=== PATIENT | male | born 1960 | race Hispanic/Latino ===

== ENCOUNTER 2021-11-28 07:29 | Day surgery (SDC) | payer BC ==
[2021-11-23 14:14] LABS: Absolute Lymphocytes (CBC) 1.2 K/uL (0.7-4.9); Hematocrit 42.5 % (39.6-49.0); Lymphocytes % 18.2 % (15.3-44.8); MPV 8.2 fL (7.6-11.3); RBC Red Blood Cell Count 4.97 M/uL (4.33-5.43)
[2021-11-23 14:15] LABS: Protime INR 1.04
[2021-11-23 14:26] LABS: Potassium 4.5 mmol/L (3.5-5.1)
[2021-11-23 14:26] LABS: SARS-CoV-2 Antigen Rapid Res Negative (Negative)
--- NOTE | 2021-11-25 17:33 | EKG ---
Test Date: 2021-11-23 Test Time: 13:46:57 Beef Splitter: HILARY MEASUREMENT RESULTS: Intervals: Rate: 80 OK: 152 QRSD: 82 QT: 372 QTc: 429 Kilmichael: P: 39 OK: 152 QRS: 21 T: 33 INTERPRETIVE STATEMENTS: Sinus rhythm with premature supraventricular complexes Otherwise normal ECG Compared to ECG 09/18/2012 03:56:03 Atrial premature complex(es) now present Sinus bradycardia no longer present Left ventricular hypertrophy no longer present Electronically Signed On 11-25-21 17:29:52 CDT by Don Taveras
[2021-11-28] MEDS ORDERED: Ringers Lactate 1,000 ML IV ONE (07:49)
[2021-11-28] MEDS ORDERED: CEFAZOLIN 2 GM IN 0.9% NACL 2 GM/100 ML BAG ONE (07:49)
[2021-11-28] MEDS ORDERED: ACETAMINOPHEN 500 MG TAB ONE (08:09)
[2021-11-28] MEDS ORDERED: MIDAZOLAM HCL 2 MG/2 ML INJ ONE (10:13)
[2021-11-28] MEDS ORDERED: propofoL 200 MG/20 ML VIAL IV ONE (10:17)
[2021-11-28] MEDS ORDERED: FENTANYL CITR 100 MCG/2 ML ONE (10:17)
[2021-11-28] MEDS ORDERED: LIDOCAINE 1% MPF 5 ML VIAL ONE (10:17)
[2021-11-28] MEDS ORDERED: CODEINE 30MG/APAP 300MG TAB PO PRN (10:25)
[2021-11-28] MEDS ORDERED: KETOROLAC 30 MG/ML INJ ONE (10:38)
[2021-11-28] MEDS ORDERED: dexAMETHasone 10 MG/ML VIAL ONE (10:38)
[2021-11-28] MEDS ORDERED: ONDANSETRON 4 MG/2 ML VIAL ONE ×2 (10:41→12:01)
[2021-11-28] MEDS ORDERED: GLYCOPYRROLATE 0.2 MG/ML SYR ONE (10:52)
[2021-11-28] MEDS ORDERED: CODEINE 30MG/APAP 300MG TAB ONE (13:00)
[2021-11-28 13:17] VITALS: BP 134/87; TEMP 96.4; O2SAT 100
--- NOTE | 2021-11-29 06:47 | OP ---
Surgeon: MICHELLE AMBRIZ Preoperative Diagnosis: BPH with lower urinary tract obstruction and symptoms. Postoperative Diagnoses: 1.BPH with lower urinary tract obstruction and symptoms. 2.Meatal stenosis. Principal Procedure: Prostatic urethral lift/UroLift with 7 devices used, 6 implants placed because of 1 pull-through. Meatal dilation using sounds. Indication For Procedure: Mr. Valdez is a 61-year-old gentleman who has been on medical therapy for BPH with use of Flomax and desired to cease the requirement for medical therapy because he still had significant symptoms despite. After evaluation revealed the presence of an approximately 55 g gland with significant lateral lobar hypertrophy, he was counseled on potential options for surgical manag ement and selected the UroLift/prostatic urethral lift procedure. He presents today for definitive m anagement. Procedure In Detail: The patient was consented in the preoperative holding area before being transfe rred to the operative suite where general anesthesia was induced. He was given Ancef 2 g IV antimicr obial prophylaxis and Pneumoboots were provided for DVT prophylaxis. He was placed in the lithotomy position, padded and secured to the table appropriately. His genitalia were prepped using Hibiclens and he was draped in standard fashion. The case was begun, attempting to insert a 20-Kittitian cystosco pe bridge, but there was evidence of meatal stenosis. As a result, I employed urethral sounds to dil ate the meatus and fossa navicularis to 24-Kittitian. After dilating his meatus and fossa navicularis, I was then able to insert the 20-Kittitian cystoscope bridge via his urethra into his bladder with ease. The prostatic urethra was surveyed along the way. There was significant lateral lobar hypertrophy along with an elevated median bar without significant intravesical projection. As a result, the cyst oscope bridge was replaced with the urolith delivery device, and the first treatment site selected wa s the left side anterolaterally near the bladder neck. Approximately 2 cm distal to the bladder neck , the first delivery device was targeted. The tip of the delivery device was angled laterally approx imately 20 degrees to compress the lateral lobe. The trigger was pulled, thereby deploying a needle containing the implant through the prostate. An additional compression was performed delivering the capsular delivery tab before additional lateral lobar compression was then achieved using the UroLift 2 delivery device. The needle was then retracted along one end of the implant to be delivered to th e capsular surface of the prostate and the implant was tensioned to ensure capsular seeding. The dev ice was then angled back towards the midline and advanced about 1 to 2 mm until cystoscopic verificat ion of the monofilament was centered in the delivery bay. The urethral end piece was then affixed to the monofilament, thereby tailoring the size of the implant and excess filament was severed. The de livery device was then readvanced into the bladder. I then switched to a new delivery device and per formed a similar technique in the right anterolateral lobe approximately 2 cm distal to the bladder n humphrey on the right. An additional implant was placed at verumontanum on the left and fourth implant at the verumontanum on the right. I then performed cystoscopic verification of the work that had been performed, and there was still anterior overhang that when associated with the median bar did appear to have a degree of residual obstruction at the bladder neck. As a result, utilizing a technique of midline anterolateral sweeping of the tissue, an additional implant was placed in that position appro ximately 2 cm distal to the bladder neck on the right. This did seem to nicely lateralize and open t he bladder neck, but an additional implant was placed on the right side in order to completely open t he bladder neck. Prior to placing the sixth implant, 1 device was utilized, but the capsular tab did pull through. As a result, a seventh device was required to achieve the 6 implants placed. In the end, I reinserted the cystoscopic bridge and decompressed his bladder before performing evaluation of the anterior channel, which was nicely open and continuous from the verumontanum through to the blad fer neck. There was a mild degree of lateral lobar hypertrophy in the region of the apex of the pros mcmahan just proximal to the implants placed at the level of the verumontanum, but this was a minimal de gree of lateral lobar ingression/hypertrophy; so, additional implants were not placed in those locati ons. As a result, I left his bladder full and then placed an 18-Kittitian coude tip Daniels catheter with ease into his bladder. 15 cc of sterile water was placed in the balloon, and the catheter was allow ed to drain revealing only light pink urine. The catheter was connected to a StatLock into a leg bag , and the patient was taken out of the lithotomy position. He was then awakened from general anesthe annmarie, transferred to a stretcher, and then transferred to the recovery room in good condition. Complications: None. Discharge Disposition: He will be discharged with a prescription for Bactrim double strength tablets once daily for the next 3 days as well as Tylenol with Codeine for pain management. He will be inst ructed to remove the catheter tomorrow morning at 7 a.m. as well as he was given instructions to come to the office if he is unable to void by 1 p.m. Subsequent followup should be established in approx imately 1 month interval assessment and to determine if he needs to continue medical therapy or if an y additional therapeutics is required. MAIK/ALYSSA Voice ID: [id number] Report ID: [id number]
== END 2021-11-28 13:10 | disposition home or self-care (01) ==
LOC: OR 07:29
PROVIDERS: ATTEND Urology
PROC: 3E1K78Z Irrigation of Genitourinary Tract using Irrigating Substance, Via Natural or Artificial Opening (ICD-10-PCS; 2021-11-28)
PROC: 0T7D8DZ Dilation of Urethra with Intraluminal Device, Via Natural or Artificial Opening Endoscopic (ICD-10-PCS; principal; 2021-11-28 09:30)
DX: N40.1 Benign prostatic hyperplasia with lower urinary tract symptoms (principal); Z20.822 Contact with and (suspected) exposure to COVID-19
CPT/HCPCS: 52441; 52442 ×6; 93005; 87088; 85025; 87086; 80048; 36415; 85610; 87811; 51700; J2704; J2250; J3010; J1100; J0690; J7120; J2405 ×2

== ENCOUNTER 2021-11-28 19:53 | Emergency (ER) | payer BC ==
--- OUTSIDE RECORDS SUMMARY | 2021-11-28 19:56 | XMS REPORT | Continuity of Care Document ---
:1960 Author Organization [facility] t Address [address] [place] [address] Care Team Providers Name Role Phone Bernardo Mock MD Primary Care Physician BERNARDO MOCK Attending Clinician Unavailable Bernardo Mock MD Attending Clinician ALEN Attending Clinician Unavailable LAB90 Attending Clinician Unavailable Alen SHRIMP PICKER-C Attending Clinician MYRON Attending Clinician Unavailable Payers Payer Name Policy Type Policy Number Effective Date Expiration Date S levi [facility] 2 [id number] 2021 00:00:00 [employer] 2 [id number] 2020 00:00:00 Problems Condition Condition Condition Status Onset Resolution Last Treating Co mments Source Name Details Category Date Date Treatment Clinician Date Prediabete Prediabete Disease Active Isa dhillon s 11-01 Seybold 00:00: 00 Essential Essential Disease Active Chris sey hypertensi hypertensi 09-09 ybold on on 00:00: 00 Hypothyroi Hypothyroi Disease Active Isa larkin d d 09-09 Seybold 00:00: 00 Erectile Erectile Disease Active Kelse y dysfunctio dysfunctio 09-09 ybold n n 00:00: 00 Benign Benign Disease Active Devi prostatic prostatic 4-09 Seyb old hyperplasi hyperplasi 00:00: a with a with 00 lower lower urinary urinary tract tract symptoms symptoms Allergies, Adverse Reactions, Alerts This patient has no known allergies or adverse reactions. Social History Social Habit Start Date Stop Date Quantity Comments Source Tobacco use and 2020-09-09 2020-09-09 Smokeless tobacco Abhishek Chew exposure 00:00:00 00:00:00 non-user Sex Ass[birth year] M Devi bravo 00:00:00 00:00:00 Smoking Status Start Date Stop Date Source Never smoked tobacco Devi Coughlinyb old Medications Ordered Filled Start Stop Current Ordering Indication Dosage Frequency Signature Comments Components Source Medication Medication Date Date Medication? Clinician (SIG) Name Name Losartan Yes [id number] 50mg Take 1 Chris sey Potassium 6-01 tablet (50 Seyb old 50 MG oral 00:00: mg total) Tablet 00 by mouth daily Rosuvastati Yes [id number] 10mg Take 1 Devi n Calcium 6-01 tablet (10 Seyb old 10 MG oral 00:00: mg total) Tablet 00 by mouth daily Tadalafil 5 Yes [id number] 5mg Take 1 Devi MG oral 6-01 tablet (5 Seybold Tablet 00:00: mg total) 00 by mouth daily Tamsulosin Yes [id number] .8mg Take 2 Devi HCl 0.4 MG - 9102 capsules Seybo ld oral 00:00: (0.8 mg Capsule 00 total) by mouth daily Thyroid (HULL SORTER Yes [id number] 1{tbl} Take 1 Devi Thyroid) - tablet by Seybol d 120 MG oral 00:00: mouth Tablet 00 daily Trazodone Yes [id number] 50mg QD Take 1 K elsey HCl 50 MG 6-01 tablet (50 Seyb old oral Tablet 00:00: mg total) 00 by mouth nightly as needed for sleep Rosuvastati 2021- No [id number] 10mg Take 1 Devi n Calcium 2-24 06-01 tablet (10 Sey bold 10 MG oral 00:00: 00:00 mg total) Tablet 00 :00 by mouth daily Tamsulosin 2021- No [id number] .8mg Take 2 Devi HCl 0.4 MG 07-27 9102 capsules Seyb old oral 00:00: 00:00 (0.8 mg Capsule 00 :00 total) by mouth daily Multiple Yes [id number] Take by K elsey Vitamin 2-02 mouth Seybold (Multi 10:29: Vitamin) 42 oral Tablet Multiple Yes [id number] Take by K elsey Vitamin 2-02 mouth Seybold (Multi 10:29: Vitamin) 42 oral Tablet Thyroid (HULL SORTER Yes 1{tbl} Take 1 Ke lsey Thyroid) 06-26 tablet by Seybol d 120 MG oral 00:00: mouth Tablet 00 daily Thyroid (HULL SORTER 2021- No 1{tbl} Take 1 K elsey Thyroid) 06-26 tablet by Seybo ld 120 MG oral 00:00: 00:00 mouth Tablet 00 :00 daily Multiple 2020-06 Yes [id number] Take by K elsey Vitamin - mouth Seybold (Multi 09:51: Vitamin) 11 oral Tablet Trazodone 2020-06 Yes [id number] 50mg QD Take 1 K elsey HCl 50 MG -29 tablet (50 Seyb old oral Tablet 00:00: mg total) 00 by mouth nightly as needed for sleep Tamsulosin 2020-06 Yes [id number] .8mg Take 2 Devi HCl 0.4 MG 07-01 9102 capsules Seybo ld oral 00:00: (0.8 mg Capsule 00 total) by mouth daily Tadalafil 5 2020-06 Yes [id number] 5mg Take 1 Devi MG oral 1-29 tablet (5 Seybold Tablet 00:00: mg total) 00 by mouth daily Losartan 2020-06 Yes [id number] 50mg Take 1 Chris sey Potassium 1-29 tablet (50 Seyb old 50 MG oral 00:00: mg total) Tablet 00 by mouth daily Rosuvastati 2020-06 Yes [id number] 10mg Take 1 Devi n Calcium 1-29 tablet (10 Seyb old 10 MG oral 00:00: mg total) Tablet 00 by mouth daily Thyroid 2020-06 Yes [id number] 1{tbl} Take 1 Ke lsey (Axtell 1-29 tablet by Seybold Thyroid) 00:00: mouth 120 MG oral 00 daily Tablet Trazodone 2020-06 Yes [id number] 50mg QD Take 1 K elsey HCl 50 MG 07-01 tablet (50 Seyb old oral Tablet 00:00: mg total) 00 by mouth nightly as needed for sleep Tamsulosin 2020-06 Yes [id number] .8mg Take 2 Devi HCl 0.4 MG 07-01 9102 capsules Seybo ld oral 00:00: (0.8 mg Capsule 00 total) by mouth daily Tadalafil 5 2020-06 Yes [id number] 5mg Take 1 Devi MG oral 07-01 tablet (5 Seybold Tablet 00:00: mg total) 00 by mouth daily Losartan 2020-06 Yes [id number] 50mg Take 1 Chris sey Potassium 07-01 tablet (50 Seyb old 50 MG oral 00:00: mg total) Tablet 00 by mouth daily Rosuvastati 2020-06 Yes [id number] 10mg Take 1 Devi n Calcium 07-01 tablet (10 Seyb old 10 MG oral 00:00: mg total) Tablet 00 by mouth daily Losartan 2020-06- No [id number] 50mg Take 1 Ke lsey Potassium 07-01 tablet (50 Sey bold 50 MG oral 00:00: 00:00 mg total) Tablet 00 :00 by mouth daily Trazodone 2020-06- No [id number] 50mg QD Take 1 Devi HCl 50 MG 07-01 tablet (50 Sey bold oral Tablet 00:00: 00:00 mg total) 00 :00 by mouth nightly as needed for sleep Tadalafil 5 2020-06- No [id number] 5mg Take 1 Devi MG oral 07-01 tablet (5 Seybol d Tablet 00:00: 00:00 mg total) 00 :00 by mouth daily Multiple 2020-06 Yes [id number] Take by K elsey Vitamin - mouth Seybold (Multi 09:01: Vitamin) 28 oral Tablet Losartan 2020-06 Yes [id number] 50mg Take 1 Chris sey Potassium - tablet (50 Seyb old 50 MG oral 00:00: mg total) Tablet 00 by mouth daily Rosuvastati 2020-06 Yes [id number] 10mg Take 1 Devi n Calcium - tablet (10 Seyb old 10 MG oral 00:00: mg total) Tablet 00 by mouth daily Tadalafil 5 2020-06 Yes [id number] 5mg Take 1 Devi MG oral - tablet (5 Seybold Tablet 00:00: mg total) 00 by mouth daily Tamsulosin 2020-06 Yes [id number] .8mg Take 2 Devi HCl 0.4 MG 06-04 9102 capsules Seybo ld oral 00:00: (0.8 mg Capsule 00 total) by mouth daily Thyroid 2020-06 Yes [id number] 1{tbl} Take 1 Ke lsey (Axtell 06-04 tablet by Seybold Thyroid) 00:00: mouth 120 MG oral 00 daily Tablet Trazodone 2020-06 Yes [id number] 50mg QD Take 1 K elsey HCl 50 MG 06-04 tablet (50 Seyb old oral Tablet 00:00: mg total) 00 by mouth nightly as needed for sleep Losartan 2020-06- No [id number] 50mg Take 1 Ke lsey Potassium 06-04 tablet (50 Sey bold 50 MG oral 00:00: 00:00 mg total) Tablet 00 :00 by mouth daily Rosuvastati 2020-06- No [id number] 10mg Take 1 Devi n Calcium -05-01 tablet (10 Sey bold 10 MG oral 00:00: 00:00 mg total) Tablet 00 :00 by mouth daily Tadalafil 5 2020-06- No [id number] 5mg Take 1 Devi MG oral 06-04 tablet (5 Seybol d Tablet 00:00: 00:00 mg total) 00 :00 by mouth daily Tamsulosin 2020-06- No [id number] .8mg Take 2 Devi HCl 0.4 MG 06-04 9102 capsules Seyb old oral 00:00: 00:00 (0.8 mg Capsule 00 :00 total) by mouth daily Thyroid 2020-06- No [id number] 1{tbl} Take 1 K elsey (Axtell 06-04 tablet by Seybol d Thyroid) 00:00: 00:00 mouth 120 MG oral 00 :00 daily Tablet Trazodone 2020-06- No [id number] 50mg QD Take 1 Devi HCl 50 MG 06-04 tablet (50 Sey bold oral Tablet 00:00: 00:00 mg total) 00 :00 by mouth nightly as needed for sleep Thyroid 2020-06- No [id number] 1{tbl} Take 1 K elsey (Axtell 04-04 tablet by Seybol d Thyroid) 00:00: 00:00 mouth 120 MG oral 00 :00 daily Tablet Losartan 2020-06- No [id number] 50mg Take 1 Ke lsey Potassium 04-04 tablet (50 Sey bold 50 MG oral 00:00: 00:00 mg total) Tablet 00 :00 by mouth daily Rosuvastati 2020-06- No [id number] 10mg Take 1 Devi n Calcium 04-04 tablet (10 Sey bold 10 MG oral 00:00: 00:00 mg total) Tablet 00 :00 by mouth daily Tadalafil 5 2020-06- No [id number] 5mg Take 1 Devi MG oral 04-04 tablet (5 Seybol d Tablet 00:00: 00:00 mg total) 00 :00 by mouth daily Tamsulosin 2020-06- No [id number] .8mg Take 2 Devi HCl 0.4 MG 04-04 9102 capsules Seyb old oral 00:00: 00:00 (0.8 mg Capsule 00 :00 total) by mouth daily Clonazepam Yes [id number] Take 1 tab Devi (KlonoPIN) 7-21 by mouth Seybo ld 0.5 MG oral 00:00: nightly as Tablet 00 needed for sleep. Take 1 tab 3 times daily as needed for anxiety/pa adelita attacks. Clonazepam Yes [id number] Take 1 tab Devi (KlonoPIN) 7-21 by mouth Seybo ld 0.5 MG oral 00:00: nightly as Tablet 00 needed for sleep. Take 1 tab 3 times daily as needed for anxiety/pa adelita attacks. Clonazepam Yes [id number] Take 1 tab Devi (KlonoPIN) 7-21 by mouth Seybo ld 0.5 MG oral 00:00: nightly as Tablet 00 needed for sleep. Take 1 tab 3 times daily as needed for anxiety/pa adelita attacks. Clonazepam Yes [id number] Take 1 tab Devi (KlonoPIN) 7-21 by mouth Seybo ld 0.5 MG oral 00:00: nightly as Tablet 00 needed for sleep. Take 1 tab 3 times daily as needed for anxiety/pa adelita attacks. Immunizations Ordered Immunization Filled Immunization Date Status Commen ts Source Name Name Covid-19 Vaccine 2020-08-22 Completed Devi hansen (Moderna), Mrna-lnp, 00:00:00 David Protein, Pf, 100 Mcg/0.5ml,IM Covid-19 Vaccine 2020-08-22 Completed Devi hansen Moderna (Spikevax), 00:00:00 Mrna-lnp, David Protein, Pf Covid-19 Vaccine 2020-08-22 Completed Devi carcamoboalessio (Moderna), Mrna-lnp, 00:00:00 David Protein, Pf, 100 Mcg/0.5ml,IM Covid-19 Vaccine 2020-08-22 Completed Devi carcamobold (Moderna), Mrna-lnp, 00:00:00 David Protein, Pf, 100 Mcg/0.5ml,IM Covid-19 Vaccine 2020-08-15 Completed Devi carcamoboalessio (TouchBistro), Mrna-lnp, 00:00:00 David Protein, Pf, 30mcg/0.3ml,IM Covid-19 Vaccine 2020-08-15 Completed Devi carcamobold (TouchBistro), Mrna-lnp, 00:00:00 David Protein, Pf, 30mcg/0.3ml,IM Covid-19 Vaccine 2020-08-15 Completed Devi Dhillon eybold (TouchBistro), Mrna-lnp, 00:00:00 David Protein, Pf, 30mcg/0.3ml,IM Covid-19 Vaccine 2020-08-15 Completed Devi Dhillon eybold (TouchBistro), Mrna-lnp, 00:00:00 David Protein, Pf, 30mcg/0.3ml,IM Covid-19 Vaccine 2020-07-28 Completed Devi carcamoboalessio (Moderna), Mrna-lnp, 00:00:00 David Protein, Pf, 100 Mcg/0.5ml,IM Covid-19 Vaccine 2020-07-28 Completed Devi carcamobold Moderna (Spikevax), 00:00:00 Mrna-lnp, David Protein, Pf Covid-19 Vaccine 2020-07-28 Completed Devi Dhillon eybold (Moderna), Mrna-lnp, 00:00:00 David Protein, Pf, 100 Mcg/0.5ml,IM Covid-19 Vaccine 2020-07-28 Completed Devi Dhillon eybold (Moderna), Mrna-lnp, 00:00:00 David Protein, Pf, 100 Mcg/0.5ml,IM Covid-19 Vaccine 2020-07-25 Completed Devi carcamobold (TouchBistro), Mrna-lnp, 00:00:00 David Protein, Pf, 30mcg/0.3ml,IM Covid-19 Vaccine 2020-07-25 Completed Devi Dhillon eybold (TouchBistro), Mrna-lnp, 00:00:00 David Protein, Pf, 30mcg/0.3ml,IM Covid-19 Vaccine 2020-07-25 Completed Devi Dhillon eybold (TouchBistro), Mrna-lnp, 00:00:00 David Protein, Pf, 30mcg/0.3ml,IM Covid-19 Vaccine 2020-07-25 Completed Devi S eybold (TouchBistro), Mrna-lnp, 00:00:00 David Protein, Pf, 30mcg/0.3ml,IM Influenza Virus 2020-05-25 Completed Devi Se ybold Vaccine, age 6 00:00:00 months and up Influenza Virus 2020-05-25 Completed Devi Se ybold Vaccine, age 6 00:00:00 months and up Influenza Virus 2020-05-25 Completed Devi Se ybold Vaccine, age 6 00:00:00 months and up Influenza Virus 2020-05-25 Completed Devi Se ybold Vaccine, age 6 00:00:00 months and up Shingles IM 2019-08-27 Completed Devi Seybol d (Shingrix) 00:00:00 Shingles IM 2019-08-27 Completed Devi Seybol d (Shingrix) 00:00:00 Shingles IM 2019-08-27 Completed Devi Seybol d (Shingrix) 00:00:00 Shingles IM 2019-08-27 Completed Devi Seybol d (Shingrix) 00:00:00 Shingles IM 2019-05-25 Completed Devi Seybol d (Shingrix) 00:00:00 Shingles IM 2019-05-25 Completed Devi Seybol d (Shingrix) 00:00:00 Shingles IM 2019-05-25 Completed Devi Seybol d (Shingrix) 00:00:00 Shingles IM 2019-05-25 Completed Devi Seybol d (Shingrix) 00:00:00 Tdap- (Boostrix, 2016-11-27 Completed Devi carcamoboalessio Adacel) 00:00:00 Tdap- (Boostrix, 2016-11-27 Completed Devi carcamoboalessio Adacel) 00:00:00 Tdap- (Boostrix, 2016-11-27 Completed Devi carcamobold Adacel) 00:00:00 Tdap- (Boostrix, 2016-11-27 Completed Devi Dhillon eybold Adacel) 00:00:00 Vital Signs Vital Name Observation Time Observation Value Comments Source Body weight 2021-11-01 20:09:00 86.456 kg Dvei hansen BMI 2021-11-01 20:09:00 27.35 kg/m2 Devi hansen Oxygen saturation in 2021-11-01 20:09:00 97 /min Devi Chew Arterial blood by Pulse oximetry Systolic blood pressure 2021-11-01 20:09:00 112 mm[Hg] Devi Chew Diastolic blood 2021-11-01 20:09:00 72 mm[Hg] Parisa Chew pressure Heart rate 2021-11-01 20:09:00 95 /min Devi hansen Body temperature 2021-11-01 20:09:00 36.89 Izabel Yodit carlos alberto Jeevan Respiratory rate 2021-11-01 20:09:00 20 /min Yodit Chew Body height 2021-11-01 20:09:00 177.8 cm Devi hansen Systolic blood pressure 2021-07-05 16:24:00 140 mm[Hg] Devi Seybold Diastolic blood 2021-07-05 16:24:00 82 mm[Hg] Kelse y Seybold pressure Heart rate 2021-07-05 16:24:00 65 /min Devi S eybold Body temperature 2021-07-05 16:24:00 36.17 Izabel Yodit ey Seybold Respiratory rate 2021-07-05 16:24:00 14 /min Yodit ey Seybold Body height 2021-07-05 16:24:00 177.8 cm Devi S eybold Body weight 2021-07-05 16:24:00 86.637 kg Devi S eybold BMI 2021-07-05 16:24:00 27.41 kg/m2 Devi S eybold Systolic blood pressure 2021-05-01 15:50:00 136 mm[Hg] Devi Seybold Diastolic blood 2021-05-01 15:50:00 82 mm[Hg] Kelse y Seybold pressure Heart rate 2021-05-01 15:50:00 72 /min Devi S eybold Body temperature 2021-05-01 15:50:00 36.78 Izabel Yodit ey Seybold Respiratory rate 2021-05-01 15:50:00 14 /min Yodit ey Seybold Body height 2021-05-01 15:50:00 177.8 cm Devi Dhillon eybold Body weight 2021-05-01 15:50:00 90.266 kg Devi Dhillon eybold BMI 2021-05-01 15:50:00 28.55 kg/m2 Devi S eybold Systolic blood pressure 2021-04-04 13:57:00 126 mm[Hg] Devi Seybold Diastolic blood 2021-04-04 13:57:00 72 mm[Hg] Kelse y Seybold pressure Heart rate 2021-04-04 13:57:00 55 /min Devi S eybold Body temperature 2021-04-04 13:57:00 36.17 Izabel Yodit ey Seybold Respiratory rate 2021-04-04 13:57:00 12 /min Yodit ey Seybold Body height 2021-04-04 13:57:00 177.8 cm Devi S eybold Body weight 2021-04-04 13:57:00 87.091 kg Devi hansen BMI 2021-04-04 13:57:00 27.55 kg/m2 Devi hansen Procedures Procedure Date / Time Performed Performing Clinician Sourc e URINALYSIS NONAUTO W/O 2021-07-05 16:36:00 Triny Chairez SCOPE Encounters Start End Encounter Admission Attending Care Care Encounter Source Date/Time Date/Time Type Type Clinicians Facility Department ID 2021-11-06 2021-11-06 Outpatient DEVI MOCK [id number] Devi 00:00:00 00:00:00 MONICA Seybol d 2021-11-01 2021-11-01 Office Trevon Mock [id number] Devi 15:00:00 15:15:00 Visit Monica Sun [id number] Se ybold Somogyi [id number] 2021-07-27 2021-07-27 Outpatient DEVI CHAIREZ [id number] Devi 00:00:00 00:00:00 TRINY Seybol d 2021-07-27 2021-07-27 Outpatient DEVI MOCK [id number] Devi 00:00:00 00:00:00 MONICA Seybol d 2021-07-05 2021-07-05 Outpatient LAB90 EDVI SWENSON [id number] Devi 11:20:00 11:20:00 Seybol d 2021-07-05 2021-07-05 Office Trevon Chairez [id number] Devi 10:30:00 11:00:00 Visit Triny Sun [id number] Se ybold [id number] 2021-06-26 2021-06-26 Outpatient DEVI MOCK [id number] Devi 00:00:00 00:00:00 MONICA Seybol d 2021-05-03 2021-05-03 Outpatient DEVI MOCK [id number] Devi 00:00:00 00:00:00 MONICA Seybol d 2021-05-01 2021-05-01 Outpatient LAB90 DEVI SWENSON [id number] Devi 11:00:00 11:00:00 Seybol d 2021-05-01 2021-05-01 Office Trevon Mock [id number] Devi 10:15:00 10:45:00 Visit Monica Sun [id number] Se ybdavid Somogyi [id number] 2021-04-04 2021-04-04 Office Trevon Mock [id number] Devi 08:52:11 09:22:11 Visit Monica Sun [id number] Se shelly Somogyi [id number] 2021-03-29 2021-03-29 Outpatient DEVI MOCK [id number] Devi 00:00:00 00:00:00 MONICA Seybol d 2021-02-23 2021-02-23 Outpatient DEVI MOCK [id number] Devi 00:00:00 00:00:00 MONICA Seybol d 2021-01-05 2021-01-05 Outpatient LAB90 DEVI SWENSON [id number] Devi 14:45:00 14:45:00 Seybol d 2021-01-05 2021-01-05 Outpatient DEVI MOCK [id number] Devi 14:00:00 14:00:00 MONICA Seybol d 2020-12-23 2020-12-23 Outpatient MARY SWENSON [id number] Devi 00:00:00 00:00:00 MD Ced BUNCHybol d Results Test Description Test Time Test Comments Results Result Comments Source URINALYSIS NONAUTO W/O SCOPE 2021-07-05 16:36:00 Test Item Value Reference Range Interpretation Comme nts UD KETONES (test code = NEG 5-160 572110) UD GLUCOSE (test code = NEG 100-2000 283990) UD PROTEIN (test code = NEG Trace - 2000 mg/dL 695180) UD LEUKOCYTES (test code = NEG Trace - Large @ 2 068179) min. UD NITRITE (test code = NEG Neg. - Pos. @ 60 031475) sec. UD UROBILINOGEN (test code = 0.2 mg/dL 0.2-8 897860) UD PH (test code = 355646) See_Comment [Automated message] The system which ge nerated this result tra nsmitted reference range : 5.0 - 8.5 @ 60 sec.. The reference range was not used to interpr et this result as normal/abnormal . UD BLOOD (test code = 879000) TRACE Neg. - Large @ 60 sec. UD SPECIFIC GRAVITY (test See_Comment [ Automated message] The code = 032659) system which generated this result tra nsmitted reference range : 1.000 - 1.030 @ 45 sec. . The reference range was not used to interpr et this result as normal/abnormal . UD BILIRUBIN (test code = NEG Neg. - Large @ 45 329105) sec. Lab Interpretation (test code Abnormal = 48636-7) Devi Chew
--- NOTE | 2021-11-28 21:34 | EDPHYS ---
Physician Documentation [facility] Name: Delfino Valdez Age: 61 yrs Sex: Male : 1960 Arrival Date: 11/28/2021 Time: 19:58 Bed 25 Private MD: ED Physician Colt Fuentes HPI: 11/29 03:07 This 61 yrs old Male presents to ER via Ambulatory with complaints of SURGICAL kdr BAG LEAKINK. 03:07 The patient had a urinary procedure this morning (UroLift) and has subsequently had kdr intermittently clotted his Kim drainage. He had presented back to Dr. eLiva office this afternoon at 5 PM with the same problem. They irrigated the Kim and release the patient back to home. Subsequently the Kim became blocked again and the patient presented to the ED. He is reportedly going to have the Kim removed tomorrow at 7 AM. He is nontoxic and not requiring any acute intervention. Onset: The symptoms/episode began/occurred acutely, suddenly, just prior to arrival. Severity of symptoms: At their worst the symptoms were mild in the emergency department the symptoms are unchanged. The patient has not experienced similar symptoms in the past. The patient has not recently seen a physician. Historical: - Allergies: 11/28 21:27 No Known Allergies; kd3 - PMHx: 21:27 BPH; kd3 - Immunization history:: Adult Immunizations up to date. - Social history:: Smoking status: unknown. ROS: 11/29 03:07 Constitutional: Negative for fever, chills, and weight loss, Eyes: Negative for injury, kdr pain, redness, and discharge, Neck: Negative for injury, pain, and swelling, Cardiovascular: Negative for chest pain, palpitations, and edema, Respiratory: Negative for shortness of breath, cough, wheezing, and pleuritic chest pain, Back: Negative for injury and pain, : Negative for injury, bleeding, discharge, and swelling, MS/Extremity: Negative for injury and deformity, Skin: Negative for injury, rash, and discoloration, Neuro: Negative for headache, weakness, numbness, tingling, and seizure activity. Psych: Negative for depression, anxiety, suicide ideation, homicidal ideation, and hallucinations, Allergy/Immunology: Negative for hives, rash, and allergies, Endocrine: Negative for neck swelling, polydipsia, polyuria, polyphagia, and marked weight changes, Hematologic/Lymphatic: Negative for swollen nodes, abnormal bleeding, and unusual bruising. Respiratory: Abdomen/GI: Positive for abdominal pain, nausea. : Positive for Clogged Kim. Exam: 03:07 Constitutional: This is a well developed, well nourished patient who is awake, alert, kdr and in no acute distress. Abdomen/GI: Soft, non-tender, with normal bowel sounds. No distension or tympany. No guarding or rebound. No evidence of tenderness throughout. 03:07 Abdomen/GI: Inspection: abdomen appears normal, Bowel sounds: normal, Palpation: soft, mild abdominal tenderness, in the suprapubic area. 03:07 : a kim is noted, to gravity drainage, urine is noted to have mona blood. Vital Signs: 11/28 20:00 Weight 82.1 kg; Height 5 ft. 10 in. (177.80 cm); kd3 20:00 BP 172 / 86; Pulse 64; Resp 18; Temp 98.2; Pulse Ox 100% ; kd3 20:00 Body Mass Index 25.97 (82.10 kg, 177.80 cm) kd3 MDM: 21:33 Patient medically screened. kdr 11/29 03:07 Data reviewed: vital signs, nurses notes, lab test result(s). Counseling: I had a kdr detailed discussion with the patient and/or guardian regarding: the historical points, exam findings, and any diagnostic results supporting the discharge/admit diagnosis, lab results, the need for outpatient follow up. ED course: Discussed the case with Dr. Leiva indicated that the Kim has been drained and the clot removed. The patient had free-flowing urine at the time of discharge. Patient was to follow-up with Dr. Leiva as scheduled.. 11/28 21:32 Order name: [facility] [place]. Order: Train patient to irrigate should clot recurr. Issue materials kdr necessary for this function to be performed at home; Complete Time: 21:52 Administered Medications: No medications were administered Disposition Summary: 11/28/21 21:33 Discharge Ordered Location: Home kdr Problem: new kdr Symptoms: have improved kdr Condition: Stable kdr Diagnosis - Hematuria, unspecified kdr - Kim clotting post op - resolved kdr Followup: kdr - With: Private Physician - When: 2 - 3 days - Reason: If symptoms return, Further diagnostic work-up, Recheck today's complaints, Continuance of care, Re-evaluation by your physician Discharge Instructions: - Discharge Summary Sheet kdr - Hematuria, Adult kdr Forms: - Medication Reconciliation Form kdr - Thank You Letter kdr Signatures: Dispatcher [employer] Colt Herring MD MD kdr Fidel Edgar RN RN jb4 Ana Gusman RN RN kd3 Corrections: (The following items were deleted from the chart) 11/28 21:37 21:21 Misc. Order ordered. kdr jb4
--- NOTE | 2021-11-28 21:34 | ER ---
Nurse's Notes [facility] Name: Delfino Valdez Age: 61 yrs Sex: Male : 1960 Arrival Date: 11/28/2021 Time: 19:58 Bed 25 Private MD: Diagnosis: Hematuria, unspecified;Kim clotting post op - resolved Presentation: 11/28 20:00 Onset of symptoms was November 28, 2021. kd3 20:00 Chief complaint: Patient states: I had surgery for a uralift this morning. and I have kd3 been at home since about 1:00 this afternoon. I had a urinary catheter placed and it isn't draining. when i urinate, it just leaked around the catheter. im supposed to be able to take it out in the morning. i went to [facility] and got it irrigated but it didn't really help. Chief complaint:. Coronavirus screen: Vaccine status: Patient reports receiving the 2nd dose of the covid vaccine. Ebola Screen: No symptoms or risks identified at this time. Initial Sepsis Screen: Does the patient meet any 2 criteria? No. Patient's initial sepsis screen is negative. Does the patient have a suspected source of infection? No. Patient's initial sepsis screen is negative. Risk Assessment: Do you want to hurt yourself or someone else? Patient reports no desire to harm self or others. 20:00 Method Of Arrival: Ambulatory kd3 21:24 Acuity: HAYDEN 3 kd3 Triage Assessment: 21:27 General: Appears in no apparent distress. Behavior is calm, cooperative. kd3 Historical: - Allergies: 21:27 No Known Allergies; kd3 - PMHx: 21:27 BPH; kd3 - Immunization history:: Adult Immunizations up to date. - Social history:: Smoking status: unknown. Screenin:10 Abuse screen: Denies threats or abuse. Nutritional screening: No deficits noted. jb4 Tuberculosis screening: No symptoms or risk factors identified. Fall Risk None identified. Assessment: 20:10 General: Appears in no apparent distress. uncomfortable, Behavior is calm, cooperative, jb4 appropriate for age. Pain: Complains of pain in suprapubic area Pain does not radiate. Pain currently is 4 out of 10 on a pain scale. Neuro: Level of Consciousness is awake, alert, obeys commands, Oriented to person, place, time, situation. Cardiovascular: Patient's skin is warm and dry. Respiratory: Airway is patent Respiratory effort is even, unlabored, Respiratory pattern is regular, symmetrical. : Kim in place Kim not draining. Derm: Skin is intact, Skin is pink, warm \T\ dry. 21:10 Reassessment: Patient appears in no apparent distress at this time. Patient and/or jb4 family updated on plan of care and expected duration. Pain level reassessed. Patient is alert, oriented x 3, equal unlabored respirations, skin warm/dry/pink. Kim irrigated until drainage clear and free of clots. 22:00 Reassessment: Patient appears in no apparent distress at this time. Patient and/or jb4 family updated on plan of care and expected duration. Pain level reassessed. Patient is alert, oriented x 3, equal unlabored respirations, skin warm/dry/pink. Vital Signs: 20:00 Weight 82.1 kg; Height 5 ft. 10 in. (177.80 cm); kd3 20:00 BP 172 / 86; Pulse 64; Resp 18; Temp 98.2; Pulse Ox 100% ; kd3 20:00 Body Mass Index 25.97 (82.10 kg, 177.80 cm) kd3 ED Course: 19:58 Patient arrived in ED. ja2 20:08 Colt Fuentes MD is Attending Physician. kdr 20:22 Fidel Edgar, BESSIE is Primary Nurse. jb4 21:10 Patient has correct armband on for positive identification. Bed in low position. Call jb4 light in reach. Side rails up X 1. 21:27 Triage completed. kd3 21:27 Arm band placed on. kd3 22:00 No provider procedures requiring assistance completed. Patient did not have IV access jb4 during this emergency room visit. Administered Medications: No medications were administered Medication: 21:10 VIS not applicable for this client. jb4 Outcome: 21:33 Discharge ordered by . kdr 22:00 Discharged to home ambulatory, with family. jb4 22:00 Condition: stable 22:00 Discharge instructions given to patient, Instructed on discharge instructions, follow up and referral plans. medication usage, How to irrigate kim Demonstrated understanding of instructions, follow-up care. 22:01 Patient left the ED. jb4 Signatures: Colt Fuentes MD MD kdr Fidel Edgar RN RN jb4 Earlene Jimenez Kyli, RN RN kd3 Corrections: (The following items were deleted from the chart) 21:18 Chief complaint: Patient states: I had surgery for a uralift this morning. and kd3 will been at home since about 1:00 this afternoon. kd3 21:18 Chief complaint: Patient states: I had surgery for a uralift this morning. and I kd3 have been at home since about 1:00 this afternoon. I had a urinary catheter placed and it isn't draining. when i urinate, it just leaked around the catheter. im supposed to be able to take it out in the morning. i went to [facility] and got it irrigated but it didn't really help. kd3 35 21:24 Chief complaint: kd3 kd3 21:24 Coronavirus screen: Vaccine status: Patient reports receiving the 2nd dose of the kd3 covid vaccine. kd3 21:24 Ebola Screen: No symptoms or risks identified at this time. kd3 kd3 :35 21:24 Initial Sepsis Screen: Does the patient meet any 2 criteria? No. Patient's 3 initial sepsis screen is negative. Does the patient have a suspected source of infection? No. Patient's initial sepsis screen is negative. kd3 :35 21:24 Risk Assessment: Do you want to hurt yourself or someone else? Patient reports no kd3 desire to harm self or others. kd3 35 21:24 Onset of symptoms was November 28, 2021 3 kd3 35 21:24 Method Of Arrival: Ambulatory 3 kd3 35 21:24 82.1 kg; Height 5 ft. 10 in.; BMI: 25.9; 3 kd3 :35 21:24 BP 172 / 86; Pulse 64bpm; Resp 18bpm; Pulse Ox 100%; Temp 98.2F; kd3 kd3
[2021-11-29 01:25] VITALS: BP 172/86; TEMP 98.2; O2SAT 100
== END 2021-11-28 22:01 | disposition home or self-care (01) ==
LOC: ER 19:53
DX: R31.9 Hematuria, unspecified (principal); Z98.890 Other specified postprocedural states